=== PATIENT | female | born 1960 | race Caucasian/White ===

== ENCOUNTER → 2018-03-06 | Outpatient (CLI) | payer BC ==
[~2018-03-06] MED LIST: ASPIRIN325 PO; CENTRUM SILVER1 EAC4 PO; COLACE100 MG PO; CRESTOR10 MG; ENOXAPARIN30 MG/0.1; FLEXERIL; IBUPROFEN 800800 M1 PO; KETOROLAC30 MG/1 M5 IM; LEVOTHYROXIN0.075 MG; METAMUCIL PAC1 UDPKT PO; NAPROSYN500 MG PO; OMEPRAZOLE 20 M20 M1; OXYCODONE HCL5 MG PO; OXYCONTIN10 M1; PEPCID20 MG; ROBAXIN 750 MG750 M1 PO; SENOKOT-S1 TA1 PO; SINGULAIR 10 MG10 M1; SYMBICORT160 MCG/4. INH; VENTOLIN HFA INH8 GM INH; XANAX 0.25 MG0.25 MG PO; ZESTORETIC 10-1 EACH
== END ==
LOC: RAD 09:25
DX: J45.40 Moderate persistent asthma, uncomplicated (principal); D64.81 Anemia due to antineoplastic chemotherapy; T45.1X5A Adverse effect of antineoplastic and immunosuppressive drugs, initial encounter; Z85.3 Personal history of malignant neoplasm of breast

== ENCOUNTER → 2019-05-08 | Outpatient (CLI) | payer BC ==
--- NOTE | 2019-05-08 11:44 | 2DMMODE ---
[facility] [place] [place] [address] 2 D/M-MODE ECHOCARDIOGRAM Name: ANSELMOALLEGRAKENYETTA SALAS Room #: REG CL [facility]#: [id number] ������������� Admission: 05/08/19 ������������� Attend Phys: Guillermo Rios, Discharge: ��� ������������� ��� Date of : 58 Date of Service: 05/08/19 1143 �� Report #: [id number] �������� ��������������������������������������������[id number] THIS REPORT FOR: //name// APPROVED REPORT Study performed: 05/08/2019 10:49:19 EXAM: Comprehensive 2D, Doppler, and color-flow Echocardiogram Patient Location: Out-Patient Status: routine BSA: 2.05 HR: 85 bpm Rhythm: NSR Other Information Study Quality: Adequate Indications Shortness of breath, Crest Syndrome. 2D Dimensions RVDd: 32.60 mm IVSd: 9.80 (7-11mm) LVOT Diam: 20.71 (18-24mm) LVDd: 48.45 mm PWd: 8.34 (7-11mm) Ascending Ao: 34.30 (22-36mm) LVDs: 34.46 (25-40mm) Aortic Root: 32.73 mm Volumes Left Atrial Volume (Systole) Single Plane 4CH: 37.22 mL Single Plane 2CH: 38.86 mL LA ESV Index: 20.00 mL/m2 Aortic Valve AoV Peak Cruz.: 1.53 m/s AO Peak Gr.: 9.31 mmHg LVOT Max P.72 mmHg LVOT Max V: 1.09 m/s ANDREEA Vmax: 2.40 cm2 Mitral Valve E/A Ratio: 0.8 MV Decel. Time: 141.75 ms MV E Max Cruz.: 0.73 m/s [facility] [address] [place] [address] 2 D/M-MODE ECHOCARDIOGRAM Name: ANSELMOALLEGRA MARITZA Room #: REG [facility]#: [id number] ������������� Admission: 05/08/19 ������������� Attend Phys: Guillermo Rios, Discharge: ��� ������������� ��� Date of : 58 Date of Service: 05/08/19 1143 �� Report #: [id number] �������� ��������������������������������������������[id number] MV A Cruz.: 0.92 m/s MV PHT: 41.11 ms IVRT: 89.97 ms Pulmonary Valve PV Peak Cruz.: 0.95 m/s PV Peak Gr.: 3.59 mmHg Pulmonary Vein P Vein S: 0.63 m/s P Vein A: 0.34 m/s P Vein D: 0.29 m/s P Vein A Dur.: 115.3 msec P Vein S/D Ratio: 2.17 Tricuspid Valve TR Peak Cruz.: 2.07 m/s RAP Estimate: 5.00 mmHg TR Peak Gr.: 17.12 mmHg PA Pressure: 22.00 mmHg Left Ventricle The left ventricle is normal size. There is normal LV segmental wall motion. There is normal left ventricular wall thickness. Left ventricular systolic function is normal. LVEF is 55-60%. Mild diastolic dysfunction is present (impaired relaxation pattern). Right Ventricle The right ventricle is normal size. The right ventricular systolic function is normal. Atria The left atrium size is normal. The right atrium size is normal. Aortic Valve The aortic valve is normal in structure. Mild aortic regurgitation. There is no aortic valvular stenosis. Mitral Valve The mitral valve is normal in structure. Mild mitral regurgitation. Tricuspid Valve The tricuspid valve is normal in structure. Trace tricuspid regurgitation. Estimated PAP is 20-25mmHg. Pulmonic Valve Pulmonic valve is not well visualized. [facility] [address] [place] [address] 2 D/M-MODE ECHOCARDIOGRAM Name: ALLEGRA BRIONES [facility]: [facility] [id number] ������������� Admission: 05/08/19 ������������� Attend Phys: Guillermo Rios, Discharge: ��� ������������� ��� Date of : 58 Date of Service: 05/08/19 1143 �� Report #: [id number] �������� ��������������������������������������������[id number] Great Vessels The aortic root is normal in size. The ascending aorta is normal in size. IVC is normal in size and collapses >50% with inspiration. Pericardium There is no pericardial effusion. <Conclusion> The left ventricle is normal size. Left ventricular systolic function is normal. LVEF is 55-60%. Mild diastolic dysfunction is present (impaired relaxation pattern). The right ventricle is normal size. The left atrium size is normal. Mild aortic regurgitation. Mild mitral regurgitation. Trace tricuspid regurgitation. Estimated PAP is 20-25mmHg. The aortic root is normal in size. There is no pericardial effusion. ��������������������������������������������� <ELECTRONICALLY SIGNED> ���������������������������������������� By: Jony Guerra MD, [facility] ��������������������������������������������� 05/08/19 1143 1143 1143 Jony Guerra MD, FACC /INF
== END ==
LOC: CAT 10:07
DX: I08.0 Rheumatic disorders of both mitral and aortic valves (principal); J84.9 Interstitial pulmonary disease, unspecified; M34.1 CR(E)ST syndrome; Z90.49 Acquired absence of other specified parts of digestive tract; Z85.3 Personal history of malignant neoplasm of breast